=== PATIENT | female | born 1995 | race Caucasian/White ===

== ENCOUNTER 2016-12-21 13:21 | Emergency (ER) | payer BC ==
[~2016-12-21] VITALS: Ht 157.5 cm; Wt 88.7 kg
[2016-12-21 14:57] LABS: HEMATOCRIT 45.7 % (36.0-46.0); MCH 28.3 PG (29.0-34.0); MCHC 33.3 G/DL (30.0-36.0); MCV 85.1 FL (83-99); MEAN PLAT.VOLUME 9.5 uM^3 (9.5-12.4); PLATELET COUNT 271 K/uL (156-360); RBC DIS.WIDTH-CV 13.1 % (11.8-14.6); RBC DIS.WIDTH-SD 40.4 % (39-53); RED BLOOD COUNT 5.37 M/uL (3.80-5.20); WHITE BLOOD COUNT 7.9 K/uL (4.1-10.2)
[2016-12-21 15:07] LABS: CHLORIDE 106 mEq/L (99-109); SODIUM 139 mEq/L (136-147)
[2016-12-21 15:10] LABS: GLUCOSE 93 mg/dL (70-99)
[2016-12-21 15:11] LABS: ANION GAP 9 MEQ/L (2-14)
[2016-12-21 15:12] LABS: TOTAL BILIRUBIN 0.3 mg/dL (0.0-1.0)
[2016-12-21 15:13] LABS: ALKALINE PHOSPHATASE 52 IU/L (3-129)
[2016-12-21 15:14] LABS: GFR ESTIMATE (CALCULATED) > 59 mL/min/; UREA NITROGEN (BUN) 13 mg/dL (9-23)
[2016-12-21 15:17] LABS: LIPASE 13 U/L (1.0-51.0)
[2016-12-21 15:27] LABS: QUANTITATIVE HCG < 4.0 MIU/ML
[2016-12-21 15:43] LABS: ADD MIUA? YES; BILIRUBIN NEGATIVE; BLOOD NEGATIVE; COLOR YELLOW ((YELLOW)); GLUCOSE (STRIP) NEGATIVE; KETONES NEGATIVE; LEUKOCYTES NEGATIVE; NITRITE NEGATIVE; PROTEIN (STRIP) NEGATIVE; SPECIFIC GRAVITY 1.021 (1.000-1.030); UROBILINOGEN 0.2 MG/DL (0.2-1.0)
[2016-12-21 15:56] LABS: BACTERIA NONE SEEN /HPF; EPITHELIAL CELLS 3+ /HPF; MUCUS TRACE /LPF; RED BLOOD CELLS 0-5 /HPF (0-5); UCUL ADDED? NO; WHITE BLOOD CELLS 0-5 /HPF (0-5)
[2016-12-21] MEDS ORDERED: BENTYL10 MG PO (16:37)
[2016-12-21] MEDS ORDERED: NAPROXEN500 MG PO (16:37)
[2016-12-21] MEDS ORDERED: ZOFRAN ODT4 MG PO (16:51)
[2016-12-21 16:57] VITALS: BP 115/65
[2016-12-22] MEDS ORDERED: REGLAN10 MG PO (05:50)
[2016-12-22] MEDS ORDERED: NORCO 5/3251 TABLET PO (05:50)
== END 2016-12-21 17:00 | disposition home or self-care (01) ==
LOC: EME 13:21
DX: R10.9 Unspecified abdominal pain (principal); R11.0 Nausea; I45.89 Other specified conduction disorders
CPT/HCPCS: 76705; 80053; 81003; 83690; 84702; 85027; 99281; 99284; J1885

== ENCOUNTER 2016-12-22 02:51 | Emergency (ER) | payer BC ==
[~2016-12-22] VITALS: Ht 157.5 cm; Wt 88.6 kg
[~2016-12-22 02:51] MED LIST: BENTYL10 MG PO; NAPROXEN500 MG PO; ZOFRAN ODT4 MG PO
[2016-12-22 03:20] LABS: HEMATOCRIT 43.7 % (36.0-46.0); MCH 28.1 PG (29.0-34.0); MCV 85.2 FL (83-99); MEAN PLAT.VOLUME 8.9 uM^3 (9.5-12.4); PLATELET COUNT 310 K/uL (156-360); RBC DIS.WIDTH-SD 40.2 % (39-53); RED BLOOD COUNT 5.13 M/uL (3.80-5.20); WHITE BLOOD COUNT 10.1 K/uL (4.1-10.2)
[2016-12-22 03:31] LABS: CHLORIDE 105 mEq/L (99-109); POTASSIUM 4.1 mEq/L (3.7-5.4); SODIUM 141 mEq/L (136-147)
[2016-12-22 03:33] LABS: GLUCOSE 126 mg/dL (70-99)
[2016-12-22 03:35] LABS: ANION GAP 12 MEQ/L (2-14)
[2016-12-22 03:37] LABS: ALKALINE PHOSPHATASE 55 IU/L (3-129); GFR ESTIMATE (CALCULATED) > 59 mL/min/
[2016-12-22 03:38] LABS: UREA NITROGEN (BUN) 18 mg/dL (9-23)
[2016-12-22 03:50] LABS: QUANTITATIVE HCG < 4.0 MIU/ML; TOTAL BILIRUBIN 0.4 mg/dL (0.0-1.0)
[2016-12-22 04:15] LABS: LIPASE 16 U/L (1.0-51.0)
[2016-12-22 05:15] LABS: ADD MIUA? YES; BILIRUBIN NEGATIVE; BLOOD MODERATE; COLOR YELLOW ((YELLOW)); GLUCOSE (STRIP) NEGATIVE; KETONES NEGATIVE; LEUKOCYTES NEGATIVE; NITRITE NEGATIVE; PROTEIN (STRIP) 30; SPECIFIC GRAVITY 1.009 (1.000-1.030); UROBILINOGEN 0.2 MG/DL (0.2-1.0)
[2016-12-22 05:31] LABS: BACTERIA RARE /HPF; EPITHELIAL CELLS 2+ /HPF; MUCUS NONE SEEN /LPF; RED BLOOD CELLS 0-5 /HPF (0-5); UCUL ADDED? NO; WHITE BLOOD CELLS 0-5 /HPF (0-5)
[2016-12-22] MEDS ORDERED: REGLAN10 MG PO (05:50)
[2016-12-22] MEDS ORDERED: NORCO 5/3251 TABLET PO (05:50)
[2016-12-22 06:32] VITALS: BP 126/74
== END 2016-12-22 06:33 | disposition home or self-care (01) ==
LOC: EME 02:51 → EXP 02:51
DX: K52.9 Noninfective gastroenteritis and colitis, unspecified (principal)
CPT/HCPCS: 74176; 80053; 81003; 83690; 84702; 85027; 99281; 99284

== ENCOUNTER → 2017-09-08 | Outpatient (CLI) | payer BC ==
[~2017-09-08] MED LIST changes: +NORCO 5/3251 TABLET PO; +REGLAN10 MG PO
== END | disposition home or self-care (01) ==
LOC: RAD 09:00
DX: R10.32 Left lower quadrant pain (principal); K59.00 Constipation, unspecified
CPT/HCPCS: 76856